=== PATIENT | male | born 1940 | race American Indian/Alaskan Native ===

== ENCOUNTER 2016-06-20 09:01 | Outpatient (CLI) | payer MEDICARE ==
--- NOTE | 2016-06-22 16:14 | Nuclear Medicine Report ---
Nuclear medicine octreotide scan. History: Chronic diarrhea. Procedure: The procedure was performed after the intravenous injection of 6 mCi of indium-111 octreotide. Whole body images were obtained initially and 24 hour delayed images were obtained. Physiologic activity is seen within the liver, spleen, and GI tract. On the 24 hour delayed image, there is a questionable focal area of increased activity in the mid abdomen just to the right of midline, but this is not confirmed on the SPECT images and thus most likely is due to transient bowel activity. No additional focal abnormalities are seen. Impression: No significant findings.
--- NOTE | 2016-06-22 16:18 | Nuclear Medicine Report ---
Please see report dictated under the accession number [id number] as part of this two-phase study.
== END 2016-06-20 09:02 | disposition home or self-care (01) ==
LOC: NM 09:01
PROVIDERS: ATTEND Internal Medicine Gastroenterology
DX: K52.9 Noninfective gastroenteritis and colitis, unspecified (principal)
CPT/HCPCS: 78804; A9572; 78803